=== PATIENT | female | born 1980 | race African-American/Black ===

== ENCOUNTER 2016-07-17 09:18 | Emergency (ER) | payer MEDICAID, OTHER ==
[~2016-07-17] VITALS: Ht 160 cm; Wt 132.0 kg
[2016-07-17 09:20] VITALS: BP 143/83; PULSE 97; RESP 16; TEMP 99.1; O2SAT 100
[2016-07-17 09:35] LABS: GLUCOSE,URINE NEG (NEG); KETONE, URINE NEG (NEG); NITRITE,URINE NEG (NEG)
[2016-07-17] MEDS ORDERED: IBUPROFEN 800 MG TAB PO ONE (10:15)
[2016-07-17 10:16] LABS: BLOOD, URINE MOD (NEG); METHOD OF COLLECTION CLEAN CATCH; URINE COLOR YELLOW (YELLW/STRAW)
--- NOTE | 2016-07-17 10:16 | PD ---
HPI Chief Complaint: Cold / Flu Symptoms Time Seen by Provider: 09:50 Travel History International Travel<30 days: No Contact w/Intl Traveler<30days: No Traveled to known affect area: No History of Present Illness HPI 35-year-old female came to the emergency room with history of fever, chills and backache. Patient says this started 2 days ago. She's been getting at least once or twice a day and shaking chills followed by defervescence. She has been coughing a little bit and last night she vomited once. No history of diarrhea. Her kids and has been worse take last week. Patient had a temperature 99.1 in the triage. She is otherwise awake and answering questions appropriately. She does not appear to be in significant distress. Vital signs were otherwise stable. [facility] Past Medical History Narrative Medical List of her past medical, surgical, social and family history was reviewed from the nursing note. Hx Anticoagulant Therapy: No Diabetes: Yes (GESTATIONAL) Patient Takes Glucophage: No Diminished Hearing: No Immunizations Current: Yes Tetanus Vaccination: Unknown ?: Not : 4 Para: 3 Past Surgical History Section: Yes Social History Alcohol Use: No Tobacco Use: No Substance Use: No Allergies-Medications (Allergen,Severity, Reaction): Coded Allergies: No Known Allergies (Verified , 07/17/16) Comments No known drug allergies Reported Meds & Prescriptions Reported Meds & Active Scripts Active Macrobid (Nitrofurantoin Monoh/Nitrofur Macro) 100 Mg Cap 100 Mg PO BID 10 Days Narrative Medication List of her home medications reviewed from the nursing note. Review of Systems Except as stated in HPI: all other systems reviewed are Neg Physical Exam Narrative GENERAL: Awake, alert, obese, no obvious distress SKIN: Focused skin assessment warm/dry. HEAD: Atraumatic. Normocephalic. EYES: Pupils equal and round. No scleral icterus. No injection or drainage. ENT: No nasal bleeding or discharge. Mucous membranes pink and moist. NECK: Trachea midline. No JVD. CARDIOVASCULAR: Regular rate and rhythm. No murmur appreciated. RESPIRATORY: No accessory muscle use. Clear to auscultation. Breath sounds equal bilaterally. GASTROINTESTINAL: Abdomen soft, non-tender, nondistended. Hepatic and splenic margins not palpable. MUSCULOSKELETAL: No obvious deformities. No clubbing. No cyanosis. No edema. NEUROLOGICAL: Awake and alert. No obvious cranial nerve deficits. Motor grossly within normal limits. Normal speech. PSYCHIATRIC: Appropriate mood and affect; insight and judgment normal. Data Data Last Documented VS Vital Signs Date Time Temp Pulse Resp B/P Pulse Ox O2 Delivery O2 Flow Rate FiO2 07/17/16 09:20 99.1 97 16 143/83 100 Orders Urinalysis - C+S If Indicated (07/17/16 09:25) Ed Urine Pregnancytest Poc (07/17/16 09:25) Influenzae A/B Antigen (07/17/16 10:14) Chest, Pa & Lat (07/17/16 ) Ibuprofen (Motrin) (07/17/16 10:15) Urine Culture (07/17/16 09:29) Nitrofurantoin Monohyd Macrocr (Macrobid (07/17/16 10:30) Labs Laboratory Tests Test 07/17/16 09:29 Urine Collection Type CLEAN CATCH Urine Color YELLOW Urine Turbidity CLEAR Urine pH 6.0 Urine Specific [place] 1.011 Urine Protein TRACE mg/dL Urine Glucose (UA) NEG mg/dL Urine Ketones NEG mg/dL Urine Occult Blood MOD Urine Nitrite NEG Urine Bilirubin NEG Urine Leukocyte Esterase SMALL Urine RBC 4-9 /hpf Urine WBC 25-49 /hpf Urine WBC Clumps OCC Urine Squamous Epithelial > 8 /hpf Cells Urine Bacteria FEW /hpf Microscopic Urinalysis Comment CULTURE INDICATED Urine Collection Time 09:29 [facility] Medical Decision Making Medical Screen Exam Complete: Yes Emergency Medical Condition: Yes Medical Record Reviewed: Yes Differential Diagnosis UTI, pneumonia, influenza, viral illness Narrative Course 10:25 AM UA came back as grossly abnormal for UTI. I have also ordered a chest x-ray and influenza. Awaiting for those to be done and resulted. I have given her a dose of Macrobid. Procedures EKG Prior to Arrival: No Diagnosis Primary Impression: UTI (urinary tract infection) Qualified Code: N39.0 - Urinary tract infection without hematuria, site unspecified Additional Impression: Fever Qualified Code: R50.9 - Fever, unspecified fever cause Referrals: Primary Care Physician 2 days Additional Instructions: Please return to the ER if the condition worsens or any other new concerns. Otherwise follow-up with your primary care. Take the medication as per the prescription direction. Drink lots of fluid. Med/Other Pt SpecificInfo: Prescription(s) given Scripts Nitrofurantoin Monohydrate Macrocrystals (Macrobid)100 Mg [id number] Mg PO BID 10 Days Ref 0 Prov:Radha George MD 07/17/16 Disposition: 01 DISCHARGE HOME Condition: Stable Radha George MD Jul 17, 2016 10:16
[2016-07-17 10:17] LABS: BACTERIA, URINE FEW /hpf; COMMENT (UR) CULTURE INDICATED; CULTURE IF INDICATED CULTURE INDICATED; SQUAMOUS EPITHELIAL CELL URINE > 8 /hpf (0-5)
[2016-07-17] MEDS ORDERED: MACR100C2 PO (10:26)
[2016-07-17] MEDS ORDERED: NITROFURANTOIN MONOHYD MACROCR 100 MG CAP PO ONE (10:30)
--- NOTE | 2016-07-17 11:03 | RADHPO ---
EXAM DATE/TIME: 07/17/2016 10:46 [place] COMPARISON: No previous studies available for comparison. INDICATIONS : Cough. MEDICAL HISTORY : None. SURGICAL HISTORY : None. ENCOUNTER: Initial ACUITY: 3 weeks PAIN SCORE: 0/10 LOCATION: Bilateral chest FINDINGS: PA and lateral views of the chest demonstrate the lungs to be symmetrically aerated without evidence of mass, infiltrate or effusion. The cardiomediastinal contours are unremarkable. Osseous structure s are intact. CONCLUSION: No acute cardiopulmonary disease. Angel Luis Ramos MD on July 17, 2016 at 11:01 Board Certified Radiologist. This report was verified electronically.
== END 2016-07-17 11:15 | disposition home or self-care (01) ==
LOC: PHEFT 09:18
DX: N39.0 Urinary tract infection, site not specified (principal); R50.9 Fever, unspecified; B96.20 Unspecified Escherichia coli [E. coli] as the cause of diseases classified elsewhere; M54.9 Dorsalgia, unspecified; R05 Cough; R11.10 Vomiting, unspecified
CPT/HCPCS: 71020; 81001; 84703; 87077; 87086; 87186; 87804; 99283